=== PATIENT | male | born 1950 | race Caucasian/White ===

== ENCOUNTER → 2016-04-07 | Outpatient (CLI) | payer BC, MEDICARE ==
[2016-04-07 13:12] LABS: Potassium 4.6 mmol/L (3.5-5.1)
[2016-04-07 13:15] LABS: CH 33.7; CHCM 34.2; HCT 46.6 % (39.0-53.0); HDW 2.34; HGB 15.4 gm/dL (13.0-17.5); MCH 32.5 pg (25.0-35.0); MCHC 32.9 g/dL (31.0-37.0); MCV 98.8 fL (80.0-100.0); Mean Platelet Volume 6.8; RBC 4.72 m/uL (4.30-5.90); RDW 12.5 % (11.5-15.5); WBC 4.6 k/uL (3.8-10.6)
== END | disposition home or self-care (01) ==
LOC: LABPAT 12:28
PROVIDERS: ATTEND Surgery
DX: Z01.812 Encounter for preprocedural laboratory examination (principal)
CPT/HCPCS: 36415; 80051; 85027

== ENCOUNTER 2016-04-08 06:06 | Day surgery (SDC) | payer BC, MEDICARE ==
[2016-04-05 13:52] VITALS: BMI 23.7
[~2016-04-08 06:06] MED LIST: LACTATED RINGERS 1,000 ML IV SCH
--- NOTE | 2016-04-08 06:26 | P.GSHP ---
History of Present Illness H&P Date: 04/08/16 S/P colostomy, angel procedure for colon obstruction secondary to diverticulitis stricture. Doing well. Taking regular diet. Increase liquid stool output. No nausea or vomiting. - Review of Systems Comment: Constitutional: No fever, chills or rigors. No weight loss or loss of appetite. HEENT: No difficulty with hearing, vision and swallowing. Lymphatic: No axillary, inguinal and cervical swellings. Endocrine: No thyroid disorders. Denies history of diabetes. Respiratory: No chest pain, shortness of breath, and cough. No hemoptysis. Cardiovascular: No palpitations, irregular HR Gastrointestinal: Denies heartburn. No change in bowel habits. No nausea or vomiting. Genitourinary: No increase in urinary frequency or urgency. No hematuria. Musculoskeletal: No back pain, joint stiffness or pain. Neurologic: No history of seizure disorder and headaches. Psychiatric: Denies depression or anxiety . No suicidal ideation. Hematologic: Denies any abnormal mucosal bleeding or easy bruising. Past Medical History Past Medical History: No Reported History Additional Past Medical History / Comment(s): CURRENT COLOSTOMY, HX OF DIVERTICULITIS, History of Any Multi-Drug Resistant Organisms: None Reported Past Surgical History: Tonsillectomy Additional Past Surgical History / Comment(s): SIGMOID COLECTOMY, Past Anesthesia/Blood Transfusion Reactions: No Reported Reaction Past Psychological History: No Psychological Hx Reported Smoking Status: Never smoker Past Alcohol Use History: Rare Past Drug Use History: None Reported - Past Family History Mother Family Medical History: Cancer Additional Family Medical History / Comment(s): BREAST Medications and Allergies Allergies Allergy/AdvReac Type Severity Reaction Status Date / Time No Known Allergies Allergy Verified 04/05/16 13:37 Surgical - Exam General: Alert and oriented to time, place and person. Not in acute distress . HEENT: No pallor, no icterus Abdomen: Surgical incisions clean, dry and intact. No surgical site infection . No incisional hernias . Ostomy pink and productive Assessment and Plan (1) Sigmoid stricture Status: Acute (2) Diverticulitis large intestine Status: Acute Plan: 1. Increase protein diet 2. Rx for Mycostatin powder and Lomotil 3. Colostomy reversal in at [facility] . Enhanced recovery pathway. 4. Colonoscopy 1 day prior to surgery 5. The risks , benefits and potential complications discussed with the patient including bleeding, infection, anastomotic leak, DVT and PE
[2016-04-08 06:53] VITALS: TEMP 96.6
[2016-04-08] MEDS ORDERED: PROPOFOL 10 MG/ML 20 ML VIAL IV ONE (07:08)
[2016-04-08 07:43] VITALS: RESP 16
[2016-04-08 08:20] VITALS: BP 148/79; PULSE 61
--- NOTE | 2016-04-09 06:50 | P.OP ---
Date of Procedure: 04/08/16 Preoperative Diagnosis: Large bowel obstruction secondary to stricture from sigmoid diverticulitis Status post Miguel procedure Postoperative Diagnosis: Same Procedure(s) Performed: Reversal of colostomy (take down of colostomy ) Low anterior resection and colorectal anastomosis Intraoperative flexible sigmoidoscopy Anesthesia: GETA, local, epidural Surgeon: Jocelyne Eng Estimated Blood Loss (ml): 50 Pathology: none sent Condition: other (ASA2) Disposition: PACU Indications for Procedure: 65 years old male underwent emergency sigmoid colectomy and Miguel procedure for large bowel obstruction(sigmoid stricture) from sigmoid diverticulitis. Informed consent was obtained from the patient after explaining the risks, benefits and potential complications and he elected to undergo colonoscopy via the colostomy and distal rectal stump Operative Findings: Normal colonoscopy with scattered diverticuli Description of Procedure: The patient was brought to the endoscopy suite and placed in lateral decubitus position. IV sedation was given as per anesthesia team. Patient was on continuous vitals and pulse oximetry monitoring throughout the procedure. A timeout was performed to verify correct patient and correct procedure. Perianal examination did not show any external hemorrhoids. Digital rectal examination was performed. No masses or gross blood. A well-lubricated Olympus colonoscope was passed per rectally upto 18 cms. No mass . No polyps. Atrophy aof mucosa sen with mucus drainage. Patient was then turned supine and the colostomy was intubated. The well- lubricated colonoscope was and was gradually advanced beyond the descending colon, splenic flexure, transverse colon, hepatic flexure and cecum. The ileocecal valve was visualized. The colonoscope was gradually withdrawn inspecting all the mucosal surfaces. Bowel prep was good. No polyps, masses, AV malformations noted. Sigmoid diverticulosis noted without any evidence of acute diverticulitis. Recommend repeat colonoscopy in 10 years .
== END 2016-04-08 08:41 | disposition home or self-care (01) ==
LOC: ORWHC2ENDO 06:06
PROVIDERS: ATTEND Surgery
DX: K57.30 Diverticulosis of large intestine without perforation or abscess without bleeding (principal); Z93.3 Colostomy status
CPT/HCPCS: 44388; J2704; 99153

== ENCOUNTER 2016-04-09 07:30 | Inpatient (IN) | payer BC, MEDICARE ==
[2016-04-05 14:04] VITALS: BMI 23.7
[~2016-04-09 07:30] MED LIST changes: +ACETAMINOPHEN TAB 500 MG TAB PO ONE; +ALVIMOPAN 12 MG CAPSULE PO ONE; +Antibiotics per Pharmacy 1 EACH MISC MISCELLANE PRN; +FAMOTIDINE 20 MG/2 ML VIAL IV PRN; +HEPARIN SODIUM,PORCINE 5,000 UNIT/ML 1 ML VIAL SQ ONE; +HYDROmorphone 1 MG/ML 1 ML SYRINGE IVP PRN; -LACTATED RINGERS 1,000 ML IV SCH; +LIDOCAINE 1% 20 ML VIAL (10MG/ML) FOR IV START INTRADERMA PRN; +MELOXICAM 7.5 MG TAB PO ONE; +MIDAZOLAM 2 MG/2 ML VIAL IV PRN; +ceFAZolin 2 GM in SODIUM CHLORIDE 0.9% 100 ML IVPB ONE; +metroNIDAZOLE-NS PMX 500 MG in SALINE 1 100ML.BAG IVPB ONE
[2016-04-09] MEDS: LACTATED RINGERS 1,000 ML IV SCH (12:43)
[2016-04-09] MEDS ORDERED: MIDAZOLAM 2 MG/2 ML VIAL IV ONE (12:47)
[2016-04-09] MEDS ORDERED: BUPIVACAINE (PF) 0.5% 31.3 ML, HYDROmorphone 5 MG in SODIUM CHLORIDE 0.9% 216 ML EPIDURAL PRN (13:24)
[2016-04-09] MEDS ORDERED: NALOXONE 0.4 MG/ML 1 ML VIAL IV PRN ×3 (13:24→19:04)
[2016-04-09] MEDS ORDERED: ONDANSETRON 4 MG/2 ML VIAL IVP PRN (13:42)
[2016-04-09] MEDS ORDERED: METOCLOPRAMIDE 5 MG/ML 2 ML VIAL IVP PRN (13:42)
[2016-04-09] MEDS ORDERED: BENZOCAINE/MENTHOL LOZENG 1 EACH LOZENGE MUCOUS MEM PRN (13:42)
[2016-04-09] MEDS ORDERED: SUCCINYLCHOLINE CHLORIDE 100 MG/5 ML SYR IV ONE (13:46)
[2016-04-09] MEDS ORDERED: HYDROmorphone (PF) 1 MG/ML ONE (13:46)
[2016-04-09] MEDS ORDERED: MIDAZOLAM 2 MG/2 ML VIAL ONE (13:46)
[2016-04-09] MEDS ORDERED: GLYCOPYRROLATE 0.2 MG/ML 2 ML VIAL ONE (13:46)
[2016-04-09] MEDS ORDERED: ROCURONIUM BROMIDE 10 MG/ML 10 ML VIAL IV ONE (13:46)
[2016-04-09] MEDS ORDERED: NEOSTIGMINE 1 MG/ML 10 ML VIAL ONE (13:46)
[2016-04-09] MEDS ORDERED: PROPOFOL 10 MG/ML 20 ML VIAL IV ONE (13:46)
[2016-04-09] MEDS ORDERED: LIDOCAINE 1% INJ 10MG/ML (20 ML MDV) ONE (13:46)
[2016-04-09] MEDS ORDERED: fentaNYL (PF) 50 MCG/ML 2 ML AMP ONE (13:46)
[2016-04-09] MEDS ORDERED: LACTATED RINGERS 1,000 ML IV ONE ×5 (14:26→17:24)
[2016-04-09] MEDS ORDERED: HYDROmorphone PCA 5 MG/25 ML SYRINGE IV PRN (19:04)
[2016-04-09] MEDS: D5-0.45% NACL WITH KCL 20MEQ/L 1,000 ML IV SCH (19:47)
[2016-04-09] MEDS: FAMOTIDINE 20 MG/2 ML VIAL IV SCH (20:35)
--- NOTE | 2016-04-09 20:48 | P.PN ---
Subjective Principal diagnosis: Colostomy reversal The patient is postop day 0 status post colostomy reversal. He reports overall fatigue. He denies appetite. No passage of flatus. Objective - Vital Signs Vital signs: Vital Signs Temp 97.0 F L 04/09/16 19:30 Pulse 61 04/09/16 20:30 Resp 16 04/09/16 19:30 BP 138/76 04/09/16 20:30 Pulse Ox 97 04/09/16 20:30 Intake & Output 04/09/16 04/09/16 04/10/16 06:59 18:59 06:59 Intake Total 4400 Output Total 550 Balance 3850 Weight 77.111 kg Intake: IV 4400 Output: Urine 500 Estimated Blood Loss 50 - Exam GENERAL: Well developed and in no acute distress. HEENT: No sclera icterus. Extraocular movements grossly intact. Moist buccal mucosa. Head is atraumatic, normocephalic. Hears conversational speech. No nasal drainage. NECK: Supple without lymphadenopathy. No JV distention. CHEST: Non-labored respirations and equal bilateral excursions. CARDIOVASCULAR: Regular rate and rhythm. Palpable 2+ radial pulses. ABDOMEN: Soft. Nondistended. Incisional tenderness as expected. Incisions clean dry and intact. No signs of infection. MUSCULOSKELETAL: No clubbing, cyanosis or edema. NEUROLOGIC: No focal or lateralizing signs. PSYCH: Appropriate affect. Alert and oriented to person, place and time. Assessment and Plan (1) History of colostomy reversal Status: Acute (2) Diverticulitis large intestine Status: Chronic Plan: 1. Ice chips. 2. DVT prophylaxis. 3. Ambulate 4 times a day. 4. Incentive spirometer. 5. Enhance colon Protocol. I am rounding on behalf of Dr. Eng.
[2016-04-09] MEDS: HEPARIN SODIUM,PORCINE 5,000 UNIT/ML 1 ML VIAL SQ SCH (23:24)
[2016-04-10] MEDS: D5-0.45% NACL WITH KCL 20MEQ/L 1,000 ML IV SCH ×3 (01:48→17:29)
[2016-04-10] MEDS: LACTATED RINGERS 1,000 ML IV SCH (01:49)
[2016-04-10 07:21] LABS: Basophils % (A) 0 %; CHCM 34.9; Eosinophils % (A) 0 %; HCT 40.6 % (39.0-53.0); HDW 2.35; HGB 13.7 gm/dL (13.0-17.5); Luc # (Auto) 0.13; Luc % (Auto) 1; Lymphocytes # (A) 0.9 k/uL (1.0-4.8); Lymphocytes % (A) 10 %; MCH 32.9 pg (25.0-35.0); MCHC 33.6 g/dL (31.0-37.0); MCV 97.7 fL (80.0-100.0); Mean Platelet Volume 6.7; Monocytes # (A) 0.4 k/uL (0-1.0); Monocytes % (A) 4 %; Neutrophils # (A) 7.9 k/uL (1.3-7.7); Neutrophils % (A) 84 %; RBC 4.16 m/uL (4.30-5.90); RDW 12.4 % (11.5-15.5); WBC 9.4 k/uL (3.8-10.6)
[2016-04-10] MEDS: HEPARIN SODIUM,PORCINE 5,000 UNIT/ML 1 ML VIAL SQ SCH (08:24)
[2016-04-10] MEDS: ALVIMOPAN 12 MG CAPSULE PO SCH ×2 (08:24→22:05)
[2016-04-10] MEDS: FAMOTIDINE 20 MG/2 ML VIAL IV SCH ×2 (08:24→21:00)
[2016-04-10] MEDS ORDERED: ACETAMINOPHEN IV (For NPO) 1,000 MG in EMPTY BAG 1 BAG IVPB SCH (12:00)
[2016-04-10] MEDS ORDERED: LORazepam 2 MG/ML SYRINGE IV PRN (12:08)
--- NOTE | 2016-04-10 12:10 | P.PN ---
Subjective Principal diagnosis: Colostomy reversal The patient is postop day 1 status post colostomy reversal. 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 He has difficulty ambulating secondary to pain. No flatus. He is belching. He denies an appetite. Objective - Vital Signs Vital signs: Vital Signs Temp 98.4 F 04/10/16 07:00 Pulse 65 04/10/16 07:00 Resp 18 04/10/16 07:00 BP 124/71 04/10/16 07:00 Pulse Ox 96 04/10/16 11:11 Intake & Output 04/09/16 04/10/16 04/10/16 18:59 06:59 18:59 Intake Total 4400 1250 Output Total 550 1000 250 Balance 3850 250 -250 Weight 77.111 kg Intake: IV 4400 1250 D5-0.45% NaCl with KCl 1250 20Meq/l 1,000 ml @ 125 mls/hr IV .Q8H VITALY Rx#: [id number] Output: Urine 500 1000 250 Uretheral (Sims) 1000 250 Estimated Blood Loss 50 Other: Voiding Method Indwelling Catheter - Exam GENERAL: Well developed and in no acute distress. HEENT: No sclera icterus. Extraocular movements grossly intact. Moist buccal mucosa. Head is atraumatic, normocephalic. Hears conversational speech. No nasal drainage. NECK: Supple without lymphadenopathy. No JV distention. CHEST: Non-labored respirations and equal bilateral excursions. CARDIOVASCULAR: Regular rate and rhythm. Palpable 2+ radial pulses. ABDOMEN: Soft. Nondistended. Incisional tenderness as expected. Incisions clean dry and intact. No signs of infection. MUSCULOSKELETAL: No clubbing, cyanosis or edema. NEUROLOGIC: No focal or lateralizing signs. PSYCH: Appropriate affect. Alert and oriented to person, place and time. - Labs CBC & Chem 7: 04/10/16 06:56 Labs: Abnormal Lab Results - Last 24 Hours (Table) 04/10/16 Range/Units 06:56 RBC 4.16 L (4.30-5.90) m/uL Plt Count 108 L (150-450) k/uL Neutrophils # 7.9 H (1.3-7.7) k/uL Lymphocytes # 0.9 L (1.0-4.8) k/uL Assessment and Plan (1) History of colostomy reversal Status: Acute (2) Diverticulitis large intestine Status: Chronic (3) Postoperative abdominal pain Status: Acute (4) Thrombocytopenia Status: Acute Plan: 1. IV Tylenol scheduled for pain. 2. IV toradol for pain. 3. 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 4. Continue Entereg. 5. He has thrombocytopenia possible Heparin/Lovenox induced. Hold heparin doses. 6. SCDs and ambulation encouraged. 7. Patient wants to hold any diet at this time.
[2016-04-10] MEDS: KETOROLAC 30 MG/ML 1 ML VIAL IVP SCH ×2 (12:16→17:28)
[2016-04-10] MEDS: ACETAMINOPHEN IV (For NPO) 1,000 MG in EMPTY BAG 1 BAG IVPB SCH ×2 (12:18→17:28)
[2016-04-11] MEDS: ACETAMINOPHEN IV (For NPO) 1,000 MG in EMPTY BAG 1 BAG IVPB SCH ×2 (00:05→05:44)
[2016-04-11] MEDS: KETOROLAC 30 MG/ML 1 ML VIAL IVP SCH ×4 (00:05→17:43)
[2016-04-11] MEDS: D5-0.45% NACL WITH KCL 20MEQ/L 1,000 ML IV SCH ×3 (00:15→15:17)
[2016-04-11 07:41] LABS: Basophils % (A) 1 %; CHCM 34.7; Eosinophils # (A) 0.1 k/uL (0-0.7); Eosinophils % (A) 2 %; HCT 37.1 % (39.0-53.0); HDW 2.31; HGB 12.5 gm/dL (13.0-17.5); Luc # (Auto) 0.13; Luc % (Auto) 2; Lymphocytes # (A) 0.8 k/uL (1.0-4.8); Lymphocytes % (A) 12 %; MCHC 33.6 g/dL (31.0-37.0); MCV 98.2 fL (80.0-100.0); Mean Platelet Volume 8.4; Monocytes # (A) 0.3 k/uL (0-1.0); Monocytes % (A) 4 %; Neutrophils # (A) 5.1 k/uL (1.3-7.7); Neutrophils % (A) 79 %; RBC 3.78 m/uL (4.30-5.90); RDW 12.5 % (11.5-15.5); WBC 6.4 k/uL (3.8-10.6); WBC (Perox) 6.14
[2016-04-11 07:49] LABS: Anion Gap 8 mmol/L; Blood Urea Nitrogen 6 mg/dL (9-20); Calcium 8.6 mg/dL (8.4-10.2); Carbon Dioxide 26 mmol/L (22-30); Chloride 107 mmol/L (98-107); Glucose 119 mg/dL (74-99); Non-African American GFR(MDRD) >60 (>60 ml/min/1.73 sqM); Potassium 4.3 mmol/L (3.5-5.1); Sodium 141 mmol/L (137-145)
[2016-04-11] MEDS: ALVIMOPAN 12 MG CAPSULE PO SCH ×2 (08:00→21:58)
[2016-04-11] MEDS: FAMOTIDINE 20 MG/2 ML VIAL IV SCH ×2 (08:00→21:59)
[2016-04-11] MEDS ORDERED: HYDROmorphone 1 MG/ML 1 ML SYRINGE IVP PRN (13:18)
--- NOTE | 2016-04-11 13:22 | P.PN ---
Subjective Principal diagnosis: Colostomy reversal The patient is postop day 2 status post colostomy reversal. He reports his pain is much better controlled with adjuncts of IV Tylenol and Toradol. He is ambulating frequently in the hallways. No reports of nausea or vomiting. He has been afebrile. No passage of flatus. Objective - Vital Signs Vital signs: Vital Signs Temp 97.8 F 04/11/16 07:00 Pulse 55 L 04/11/16 07:00 Resp 16 04/11/16 07:00 BP 108/67 04/11/16 07:00 Pulse Ox 95 04/11/16 07:00 Intake & Output 04/10/16 04/11/16 04/11/16 18:59 06:59 18:59 Intake Total 1000 1125 Output Total 500 2200 500 Balance 500 -1075 -500 Intake: IV 1000 1125 D5-0.45% NaCl with KCl 1000 1125 20Meq/l 1,000 ml @ 125 mls/hr IV .Q8H VITALY Rx#: [id number] Output: Urine 500 2200 500 Uretheral (Sims) 250 Other: Voiding Method Toilet Urinal - Exam GENERAL: Well developed and in no acute distress. HEENT: No sclera icterus. Extraocular movements grossly intact. Moist buccal mucosa. Head is atraumatic, normocephalic. Hears conversational speech. No nasal drainage. NECK: Supple without lymphadenopathy. No JV distention. CHEST: Non-labored respirations and equal bilateral excursions. CARDIOVASCULAR: Regular rate and rhythm. Palpable 2+ radial pulses. ABDOMEN: Soft. Nondistended. Abdominal binder present. Dressings intact. MUSCULOSKELETAL: No clubbing, cyanosis or edema. NEUROLOGIC: No focal or lateralizing signs. PSYCH: Appropriate affect. Alert and oriented to person, place and time. - Labs CBC & Chem 7: 04/11/16 06:42 04/11/16 06:42 Labs: Abnormal Lab Results - Last 24 Hours (Table) 04/11/16 04/11/16 Range/Units 06:42 06:42 RBC 3.78 L (4.30-5.90) m/uL Hgb 12.5 L (13.0-17.5) gm/dL Hct 37.1 L (39.0-53.0) % Plt Count 100 L (150-450) k/uL Lymphocytes # 0.8 L (1.0-4.8) k/uL BUN 6 L (9-20) mg/dL Glucose 119 H (74-99) mg/dL Assessment and Plan (1) History of colostomy reversal Status: Acute (2) Diverticulitis large intestine Status: Chronic (3) Postoperative abdominal pain Status: Acute (4) Thrombocytopenia Status: Acute Plan: 1. His pain is well-controlled. We'll start oral pain meds per patient request. 2. Liquid diet today. 3. Repeat CBC for thrombocytopenia including anemia. 4. Disposition home pending passage of flatus. 5. Care plan was described in detail to the patient. His surgical questions were answered. I am rounding on behalf of Dr. Eng.
[2016-04-11] MEDS: HYDROcodone/APAP 5-325MG 1 EACH TAB PO SCH ×2 (14:19→21:58)
[2016-04-12] MEDS: KETOROLAC 30 MG/ML 1 ML VIAL IVP SCH ×4 (01:14→19:06)
[2016-04-12] MEDS: HYDROcodone/APAP 5-325MG 1 EACH TAB PO SCH ×4 (01:14→19:06)
[2016-04-12] MEDS: D5-0.45% NACL WITH KCL 20MEQ/L 1,000 ML IV SCH ×3 (05:41→21:22)
[2016-04-12 07:48] LABS: Basophils % (A) 1 %; CH 33.7; CHCM 33.8; Eosinophils # (A) 0.2 k/uL (0-0.7); Eosinophils % (A) 4 %; HCT 37.8 % (39.0-53.0); HDW 2.33; HGB 12.8 gm/dL (13.0-17.5); Luc # (Auto) 0.15; Luc % (Auto) 3; Lymphocytes # (A) 1.2 k/uL (1.0-4.8); Lymphocytes % (A) 25 %; MCH 33.9 pg (25.0-35.0); MCHC 33.9 g/dL (31.0-37.0); Mean Platelet Volume 7.3; Monocytes # (A) 0.2 k/uL (0-1.0); Monocytes % (A) 4 %; Neutrophils # (A) 3.2 k/uL (1.3-7.7); Neutrophils % (A) 64 %; RBC 3.78 m/uL (4.30-5.90); RDW 12.5 % (11.5-15.5); WBC 4.9 k/uL (3.8-10.6); WBC (Perox) 5.09
[2016-04-12 07:57] LABS: Anion Gap 8 mmol/L; Blood Urea Nitrogen 5 mg/dL (9-20); Calcium 8.9 mg/dL (8.4-10.2); Carbon Dioxide 26 mmol/L (22-30); Chloride 107 mmol/L (98-107); Glucose 106 mg/dL (74-99); Non-African American GFR(MDRD) >60 (>60 ml/min/1.73 sqM); Potassium 4.2 mmol/L (3.5-5.1); Sodium 141 mmol/L (137-145)
[2016-04-12] MEDS: ALVIMOPAN 12 MG CAPSULE PO SCH ×2 (08:37→21:23)
[2016-04-12] MEDS: FAMOTIDINE 20 MG/2 ML VIAL IV SCH ×2 (08:38→21:23)
--- NOTE | 2016-04-12 09:07 | P.PN ---
Subjective A 65-year-old male being seen on rounds this morning is currently sitting up in a chair. Patient states pain medication effective for pain control. Patient states less abdominal pain this morning. Patient states he has been up ambulating in the [place] yesterday passing gas no stool. Patient's tolerating diet no reports of nausea vomiting. Patient is postop day 3 colostomy reversal Objective - Vital Signs Vital signs: Vital Signs Temp 97.5 F L 04/12/16 02:00 Pulse 44 L 04/12/16 02:00 Resp 18 04/12/16 02:00 BP 107/67 04/12/16 02:00 Pulse Ox 96 04/12/16 02:00 Intake & Output 04/11/16 04/12/16 04/12/16 18:59 06:59 18:59 Intake Total 1125 Output Total 500 Balance -500 1125 Intake: IV 1125 D5-0.45% NaCl with KCl 1125 20Meq/l 1,000 ml @ 125 mls/hr IV .Q8H VITALY Rx#: [id number] Output: Urine 500 Other: Voiding Method Toilet Urinal # Voids 5 - Exam GENERAL APPEARANCE: 65-year-old male patient is alert, oriented, in no acute distress. Pleasant cooperative sitting up in a chair VITAL SIGNS: Reviewed HEENT: Head is normocephalic and atraumatic. Pupils are equal and reactive. The nares are patent. Oropharynx is clear without lesions. NECK: Supple without lymphadenopathy. Traches midline. HEART: S1, S2. Regular rate and rhythm. No murmur noted denying chest pain LUNGS: No crackles or wheezes are heard. Adequate air movement able to use the incentive spirometer achieving 3000 sats 95% room air ABDOMEN: Abdominal binder in place dressings to surgical site dry slight tenderness a few hypoactive bowel tones no nausea no vomiting urinating no difficulty no stool EXTREMITIES: Normal skin color and turgor. No cyanosis, rash, ulceration, clubbing or edema. Radial pedal pulses are 2/4 bilaterally. NEUROLOGICAL: No focal deficits. Strength and sensation are grossly intact. - Labs CBC & Chem 7: 04/12/16 07:17 04/12/16 07:15 Labs: Abnormal Lab Results - Last 24 Hours (Table) 04/12/16 04/12/16 Range/Units 07:15 07:17 RBC 3.78 L (4.30-5.90) m/uL Hgb 12.8 L (13.0-17.5) gm/dL Hct 37.8 L (39.0-53.0) % Plt Count 106 L (150-450) k/uL BUN 5 L (9-20) mg/dL Glucose 106 H (74-99) mg/dL Assessment and Plan Plan: Impression 1) History of colostomy reversal Status: Acute (2) Diverticulitis large intestine Status: Chronic (3) Postoperative abdominal pain Status: Acute (4) Thrombocytopenia Plan Increase activity to the level of tolerance Pain control Diet to be advanced DVT and GI prophylaxis Further recommendations pending will follow The above dictated assessment and findings were discussed with Dr. Ankush Carmichael and the plan of care have been dictated as directed. Gabriella Anna nurse practitioner acting as a scribe for Dr. Lechuga
[2016-04-12] MEDS: METOCLOPRAMIDE 5 MG/ML 2 ML VIAL IVP SCH (19:06)
[2016-04-13] MEDS: HYDROcodone/APAP 5-325MG 1 EACH TAB PO SCH ×3 (00:23→12:18)
[2016-04-13] MEDS: KETOROLAC 30 MG/ML 1 ML VIAL IVP SCH ×3 (00:24→12:15)
[2016-04-13] MEDS: METOCLOPRAMIDE 5 MG/ML 2 ML VIAL IVP SCH ×3 (00:24→12:16)
[2016-04-13] MEDS: D5-0.45% NACL WITH KCL 20MEQ/L 1,000 ML IV SCH ×2 (03:00→12:16)
[2016-04-13 07:35] LABS: Basophils % (A) 0 %; CH 33.8; CHCM 34.3; Eosinophils # (A) 0.2 k/uL (0-0.7); Eosinophils % (A) 4 %; HCT 35.4 % (39.0-53.0); HDW 2.35; HGB 12.2 gm/dL (13.0-17.5); Luc # (Auto) 0.11; Luc % (Auto) 3; Lymphocytes # (A) 1.1 k/uL (1.0-4.8); Lymphocytes % (A) 26 %; MCH 34.2 pg (25.0-35.0); MCHC 34.5 g/dL (31.0-37.0); Monocytes # (A) 0.2 k/uL (0-1.0); Monocytes % (A) 4 %; Neutrophils # (A) 2.7 k/uL (1.3-7.7); Neutrophils % (A) 64 %; RBC 3.57 m/uL (4.30-5.90); RDW 12.5 % (11.5-15.5); WBC 4.2 k/uL (3.8-10.6); WBC (Perox) 4.43
[2016-04-13 07:47] LABS: Anion Gap 7 mmol/L; Blood Urea Nitrogen 5 mg/dL (9-20); Calcium 8.7 mg/dL (8.4-10.2); Carbon Dioxide 30 mmol/L (22-30); Chloride 104 mmol/L (98-107); Glucose 100 mg/dL (74-99); Non-African American GFR(MDRD) >60 (>60 ml/min/1.73 sqM); Potassium 4.3 mmol/L (3.5-5.1); Sodium 141 mmol/L (137-145)
[2016-04-13 07:51] VITALS: BP 114/70; PULSE 51; RESP 16; TEMP 96.9
[2016-04-13] MEDS: FAMOTIDINE 20 MG/2 ML VIAL IV SCH (08:23)
--- NOTE | 2016-04-13 09:09 | P.DS ---
Providers Date of admission: 04/09/16 08:48 Expected date of discharge: 04/13/16 Attending physician: Jocelyne Eng Primary care physician: [facility] Course: 65-year-old male presented on the day of admission to undergo elective reversible colostomy in a patient who had diverticulitis of the large intestine. Postop there were no acute events. On the day of discharge the pain medication was effective for pain control. Patient had a bowel movement. Was tolerating a diet. Is hemodynamically stable and appropriate proceed with a discharge to home. On the day of discharge the surgeon did remove the Katheryn drain. Lisbet to the surgical site well approximated no redness. Impression discharge diagnosis 1) History of colostomy reversal Status: Acute (2) Diverticulitis large intestine Status: Chronic (3) Postoperative abdominal pain Status: Acute (4) Thrombocytopenia suspect chronic Status post exploratory laparotomy sigmoid colectomy and ostomy done on January for an acute on chronic large bowel obstruction The above dictated assessment and findings were discussed with dr eng. Impression and the plan of care have been dictated as directed. Gabriella Anna nurse practitioner acting as a scribe for dr eng Plan - Discharge Summary New Discharge Prescriptions: Docusate [Colace] 100 mg PO BID #30 capsule HYDROcodone/APAP 5-325MG [[place] 5-325] 1 tab PO Q4HR PRN #30 tab PRN Reason: Pain Discharge Medication List HYDROcodone/APAP 5-325MG [[place] 5-325] 1 tab PO Q4HR PRN #30 tab 02/01/16 [Rx] Docusate [Colace] 100 mg PO BID #30 capsule 04/09/16 [Rx] HYDROcodone/APAP 5-325MG [[place] 5-325] 1 tab PO Q4HR PRN #30 tab 04/09/16 [Rx] HYDROcodone/APAP 5-325MG [[place] 5-325] 2 each PO Q6HR tab 04/13/16 [Rx] Follow up Appointment(s)/Referral(s): Jocelyne Eng MD [STAFF PHYSICIAN] - 04/20/16 Activity/Diet/Wound Care/Special Instructions: OK to shower . No soaking bath. No heavy lifting more than 10 lbs for 6 weeks post surgery. No driving while taking narcotics for pain. May use ice packs for local pain relief Take Motrin 600 mg po TID after meals if pain is not controlled Use incentive spirometry 10 times an hour while awake Discharge Disposition: HOME SELF-CARE
[2016-04-13] MEDS: ALVIMOPAN 12 MG CAPSULE PO SCH (12:15)
--- NOTE | 2016-04-16 13:08 | P.OP ---
Date of Procedure: 04/09/16 Anesthesia: GETA, epidural Surgeon: Jocelyne Eng Pathology: other Condition: other (ASA2) Disposition: floor Description of Procedure: Large bowel obstruction secondary to stricture from sigmoid diverticulitis Status post Miguel procedure Procedure(s) Performed: Reversal of colostomy (take down of colostomy ) Low anterior resection and colorectal anastomosis Intraoperative flexible sigmoidoscopy Anesthesia: GETA, local, epidural Surgeon: Jocelyne Eng Estimated Blood Loss (ml): 50 Pathology: none sent Condition: other (ASA2) Disposition: PACU Indications for Procedure: 65 years old male underwent emergency sigmoid colectomy and Miguel procedure for large bowel obstruction(sigmoid stricture) from sigmoid diverticulitis. Informed consent was obtained from the patient after explaining the risks, benefits and potential complications and he elected to undergo colostomy reversal. Operative Findings: End to side colorectal anastomosis. No leak on air insufflation test Description of Procedure: The patient was brought to the operating room and placed in supine position. General anesthesia with endotracheal intubation was performed as per anesthesia team. A timeout was performed to verify correct patient and correct procedure. He was confirmed to receive perioperative IV antibiotics and DVT prophylaxis. Patient was then placed in lithotomy using yellowfin stirrups and a Sims catheter was inserted under sterile aseptic precautions. The colostomy site was closed with running sutures of 2-0 silk and prepped with Betadine and sterile drapes applied. Chlorhexidine was used to prep the skin followed by application of sterile drapes. Betadine was used to prep the rectum and the perineum. A vertical midline incision was made through the existing scar and the peritoneal cavity was entered under direct vision. There were adhesions from prior surgery which were taken down using sharp dissection. The small bowel was run from ligament of Treitz to terminal ileum. There were various scar bands which were lysed. A loop of small bowel was densely adhered to the left lateral pelvic wall where previous ana m were placed. This was meticulously dissected. No enterotomy noted. The distal rectal stump was identified with the help of Prolene stitches. It was densely adhered to the left lateral pelvic wall. It was circumferentially dissected. The remaining sigmoid colon was resected at rectosigmoid junction using a contour stapler. The patient was placed in Trendelenburg. A Bookwalter retractor was placed in the small bowel was retracted away from the pelvis. Bladder place was also placed. The ostomy was dissected off the surrounding tissue and was interiorized. The descending colon was mobilized further along the white line of Toldt. The descending colon reached the pelvis without any undue tension. The staple margin was opened and several sizers were introduced. 29 sizer could be easily passed and ILS 29 circular stapler anvil was opened and was introduced through the open end of the colon and brought out through the side. An Covidien purple 60 load was used to colse the sigmoid colon end. ILS 29 circular stapler was inserted per rectum and was gradually advanced upto the staple line. The stapler was gently opened. The descending colon reached the pelvis without any tension. The ana m were locked in position and was closed and fired. This was followed by insufflation of air via intraop flexible sigmoidoscopy. The proximal end of the colon was clamped proximally and anastomosis was immersed in saline.There was no air bubbles noted. The air leak test was negative. The prior ostomy site in left lower quadrant was closed with running sutures of single strand Maxon and second layer of 0 Vicryl. The midline was closed with double-stranded PDS 2. Katheryn drain was left in the subcutaneous tissue along both incisions. Skin ana m were applied. The sponge, instrument and needle count were correct 2. Patient tolerated the procedure well and was taken to postanesthesia care unit in stable condition Additional CC's: Fish Anderson
== END 2016-04-13 14:41 | disposition home or self-care (01) | DRG 330 ==
LOC: 2ORWHC 08:48 → 3SUR 17:35
PROVIDERS: ADMIT Surgery; ATTEND Surgery
PROC: 0WQFXZ2 Repair Abdominal Wall, Stoma, External Approach (ICD-10-PCS; principal; 2016-04-09 10:35)
PROC: 0DJD8ZZ Inspection of Lower Intestinal Tract, Via Natural or Artificial Opening Endoscopic (ICD-10-PCS; principal; 2016-04-09 10:35)
PROC: 0DBN0ZZ Excision of Sigmoid Colon, Open Approach (ICD-10-PCS; principal; 2016-04-09 10:35)
DX: Z43.3 Encounter for attention to colostomy (principal); K57.32 Diverticulitis of large intestine without perforation or abscess without bleeding; D69.6 Thrombocytopenia, unspecified; G89.18 Other acute postprocedural pain
CPT/HCPCS: 44388; 80048; 85025; 86850; 86900; 86901; 88304; 92950; 94760; 94762; 99153

== ENCOUNTER → 2016-12-06 | Outpatient (CLI) | payer BC, MEDICARE ==
--- NOTE | 2016-12-06 10:01 | XR ---
EXAMINATION TYPE: XR lumbosacral spine min 4V DATE OF EXAM: 12/06/2016 COMPARISON: NONE HISTORY: 66-year-old male low back pain and right leg pain TECHNIQUE: 5 views FINDINGS: 5 lumbar type vertebral bodies. No pars interarticularis defect. Endplate spondylosis mid to lower ignacio mbar spine with some bridging endplate spondylosis anteriorly and towards the left at L4-L5 and possi elliot at L5-S1 as well. There is moderate to severe degenerative disc height loss at L5-S1 and mild at L4-L5. Marked hypertrophic facet arthropathy mid to lower lumbar spine. Preserved alignment and verte bral body heights. IMPRESSION: Moderate degenerative disc disease and endplate spondylosis particularly in the lower lumbar spine. T here seem to be some bridging endplate spondylotic changes at L4-L5 and L5-S1. Hypertrophic facet art hropathy mid to lower lumbar spine. No vertebral compression collapse or malalignment.
== END ==
LOC: RADXRYALE 09:07
PROVIDERS: ATTEND Physician Assistant Medical
DX: M51.36 Other intervertebral disc degeneration, lumbar region (principal); M47.816 Spondylosis without myelopathy or radiculopathy, lumbar region; M46.86 Other specified inflammatory spondylopathies, lumbar region
CPT/HCPCS: 72110

== ENCOUNTER 2020-03-09 14:39 | Emergency (ER) | payer BC, MEDICARE ==
[2020-03-09 15:46] LABS: Appearance,Urine Clear (Clear); Bilirubin,Urine Negative (Negative); Blood,Urine Negative (Negative); Color,Urine Light Yellow; Glucose,Urine (UA) Negative (Negative); Ketones,Urine Negative (Negative); Leukocyte Esterase,Urine Negative (Negative); Nitrite,Urine Negative (Negative); Protein,Urine Negative (Negative); Specific Gravity,Urine 1.011 (1.001-1.035); Urobilinogen,Urine <2.0 mg/dL (<2.0)
[2020-03-09 15:47] LABS: Basophils % (A) 1 %; Eosinophils # (A) 0.1 k/uL (0-0.7); Eosinophils % (A) 1 %; HCT 43.4 % (39.0-53.0); HGB 15.4 gm/dL (13.0-17.5); Lymphocytes # (A) 1.2 k/uL (1.0-4.8); Lymphocytes % (A) 15 %; MCH 34.3 pg (25.0-35.0); MCHC 35.4 g/dL (31.0-37.0); MCV 96.9 fL (80.0-100.0); Mean Platelet Volume 7.1; Monocytes # (A) 0.3 k/uL (0-1.0); Monocytes % (A) 4 %; Neutrophils # (A) 6.1 k/uL (1.3-7.7); Neutrophils % (A) 78 %; Platelet Count 166 k/uL (150-450); RBC 4.48 m/uL (4.30-5.90); RDW 11.8 % (11.5-15.5); WBC 7.8 k/uL (3.8-10.6)
[2020-03-09 15:56] LABS: INR 0.9 (<1.2); Prothrombin Time 10.2 sec (9.0-12.0)
--- NOTE | 2020-03-09 15:56 | XR ---
EXAMINATION TYPE: XR chest 2V DATE OF EXAM: 03/09/2020 COMPARISON: NONE HISTORY: Altered mental status. TECHNIQUE: Frontal and lateral views of the chest are obtained. FINDINGS: There is no focal air space opacity, pleural effusion, or pneumothorax seen. The cardiac silhouette size is within normal limits. The osseous structures are intact. IMPRESSION: No acute cardiopulmonary process.
[2020-03-09 15:57] LABS: Amphetamine Screen,Urine Not Detected (NotDetected); Barbiturate Screen,Urine Not Detected (NotDetected); Benzodiazepines Screen,Urine Not Detected (NotDetected); Cocaine Screen,Urine Not Detected (NotDetected); Methadone Screen, Urine Not Detected (NotDetected); Opiate Screen,Urine Not Detected (NotDetected); Oxycodone Screen, Urine Not Detected (NotDetected); Phencyclidine Screen,Urine Not Detected (NotDetected); Tricyclic Antidepressant,Urine Not Detected (NotDetected); Urn Cannabinoid Scrn Not Detected (NotDetected)
[2020-03-09 15:59] LABS: ALT 31 U/L (4-49); AST 35 U/L (17-59); African American GFR (CKD) >90 (>60 ml/min/1.73 sqM); Albumin 4.8 g/dL (3.5-5.0); Alkaline Phosphatase 117 U/L (38-126); Anion Gap 8 mmol/L; Blood Urea Nitrogen 23 mg/dL (9-20); Calcium 9.8 mg/dL (8.4-10.2); Carbon Dioxide 22 mmol/L (22-30); Chloride 108 mmol/L (98-107); Glucose 119 mg/dL (74-99); Non-African American GFR(CKD) 87 (>60 ml/min/1.73 sqM); Potassium 4.5 mmol/L (3.5-5.1); Sodium 138 mmol/L (137-145); Total Bilirubin 0.7 mg/dL (0.2-1.3); Total Protein 7.8 g/dL (6.3-8.2)
--- NOTE | 2020-03-09 16:00 | XR ---
Result: Clinical History: Pain status post fall 2 weeks ago. Comparison: None available. Technique: 3 views of the right shoulder. Findings: The bone mineralization is appropriate for age. No acute fracture or dislocation is seen. 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 Subtle trace calcific densities adjacent to the humeral head, consistent with minimal rotator cuff calcific tendinitis. The visualized lung is clear. Impression: No acute osseous abnormality.
--- NOTE | 2020-03-09 16:02 | ED ---
Neuro HPI - General Chief Complaint: Neuro Symptoms/Deficit Stated Complaint: Loss of Memory,Fall 2 wks ago Time Seen by Provider: 03/09/20 15:03 Source: patient Mode of arrival: wheelchair Limitations: no limitations - History of Present Illness Is the patient presenting with stroke symptoms?: No Last Known Well Date: 01/22/20 Onset/Timin -: week(s) Initial Comments: This patient is a 69-year-old man who presents with a constellation of symptoms that he states began on January 21 when he had a fall attempting to bring a arch oil tank into his basement. The patient relates that he fell a number of steps landing with a significant impact on a concrete floor. The patient states he did not strike his head nor was there loss of consciousness. He was having pain in the right shoulder. He also was concerned that he may have had a concussion because following that he began to notice she was having trouble finding words when he was speaking. He states that this has seemed to get progressively worse over the past month and specifically past 2 weeks Location: other Place: home Improves With: none Worsens With: none Context: gradual onset Treatments Prior to Arrival: none - Related Data Home Medications: Previous Rx's Medication Instructions Recorded HYDROcodone/APAP 5-325MG [[place] 1 tab PO Q4HR PRN #30 tab 02/01/16 5-325] Docusate [Colace] 100 mg PO BID #30 capsule 04/09/16 HYDROcodone/APAP 5-325MG [[place] 1 tab PO Q4HR PRN #30 tab 04/09/16 5-325] HYDROcodone/APAP 5-325MG [[place] 2 each PO Q6HR tab 04/13/16 5-325] Allergies/Adverse Reactions: Allergies Allergy/AdvReac Type Severity Reaction Status Date / Time No Known Allergies Allergy Verified 03/09/20 14:55 Review of Systems ROS Statement: Those systems with pertinent positive or pertinent negative responses have been documented in the HPI. ROS Other: All systems not noted in ROS Statement are negative. General Exam Limitations: no limitations Stroke MDM - Lab Data Result diagrams: 03/09/20 15:33 03/09/20 15:33 Lab Results 03/09/20 03/09/20 03/09/20 Range/Units 15:33 15:33 15:33 WBC 7.8 (3.8-10.6) k/uL RBC 4.48 (4.30-5.90) m/uL Hgb 15.4 (13.0-17.5) gm/dL Hct 43.4 (39.0-53.0) % MCV 96.9 (80.0-100.0) fL MCH 34.3 (25.0-35.0) pg MCHC 35.4 (31.0-37.0) g/dL RDW 11.8 (11.5-15.5) % Plt Count 166 (150-450) k/uL MPV 7.1 Neutrophils % 78 % Lymphocytes % 15 % Monocytes % 4 % Eosinophils % 1 % Basophils % 1 % Neutrophils # 6.1 (1.3-7.7) k/uL Lymphocytes # 1.2 (1.0-4.8) k/uL Monocytes # 0.3 (0-1.0) k/uL Eosinophils # 0.1 (0-0.7) k/uL Basophils # 0.0 (0-0.2) k/uL PT 10.2 (9.0-12.0) sec INR 0.9 (<1.2) APTT 21.5 L (22.0-30.0) sec Sodium (137-145) mmol/L Potassium (3.5-5.1) mmol/L Chloride (98-107) mmol/L Carbon Dioxide (22-30) mmol/L Anion Gap mmol/L BUN (9-20) mg/dL Creatinine (0.66-1.25) mg/dL Est GFR (CKD-EPI)AfAm (>60 ml/min/1.73 sqM) Est GFR (CKD-EPI)NonAf (>60 ml/min/1.73 sqM) Glucose (74-99) mg/dL Calcium (8.4-10.2) mg/dL Total Bilirubin (0.2-1.3) mg/dL AST (17-59) U/L ALT (4-49) U/L Alkaline Phosphatase (38-126) U/L Troponin I (0.000-0.034) ng/mL Total Protein (6.3-8.2) g/dL Albumin (3.5-5.0) g/dL Urine Color Light Yellow Urine Appearance Clear (Clear) Urine pH 5.0 (5.0-8.0) Ur Specific [place] 1.011 (1.001-1.035) Urine Protein Negative (Negative) Urine Glucose (UA) Negative (Negative) Urine Ketones Negative (Negative) Urine Blood Negative (Negative) Urine Nitrite Negative (Negative) Urine Bilirubin Negative (Negative) Urine Urobilinogen <2.0 (<2.0) mg/dL Ur Leukocyte Esterase Negative (Negative) Urine Opiates Screen Not Detected (NotDetected) Ur Oxycodone Screen Not Detected (NotDetected) Urine Methadone Screen Not Detected (NotDetected) Ur Propoxyphene Screen Not Detected (NotDetected) Ur Barbiturates Screen Not Detected (NotDetected) U Tricyclic Antidepress Not Detected (NotDetected) Ur Phencyclidine Scrn Not Detected (NotDetected) Ur Amphetamines Screen Not Detected (NotDetected) U Methamphetamines Scrn Not Detected (NotDetected) U Benzodiazepines Scrn Not Detected (NotDetected) Urine Cocaine Screen Not Detected (NotDetected) U Marijuana (THC) Screen Not Detected (NotDetected) 03/09/20 03/09/20 Range/Units 15:33 15:33 WBC (3.8-10.6) k/uL RBC (4.30-5.90) m/uL Hgb (13.0-17.5) gm/dL Hct (39.0-53.0) % MCV (80.0-100.0) fL MCH (25.0-35.0) pg MCHC (31.0-37.0) g/dL RDW (11.5-15.5) % Plt Count (150-450) k/uL MPV Neutrophils % % Lymphocytes % % Monocytes % % Eosinophils % % Basophils % % Neutrophils # (1.3-7.7) k/uL Lymphocytes # (1.0-4.8) k/uL Monocytes # (0-1.0) k/uL Eosinophils # (0-0.7) k/uL Basophils # (0-0.2) k/uL PT (9.0-12.0) sec INR (<1.2) APTT (22.0-30.0) sec Sodium 138 (137-145) mmol/L Potassium 4.5 (3.5-5.1) mmol/L Chloride 108 H (98-107) mmol/L Carbon Dioxide 22 (22-30) mmol/L Anion Gap 8 mmol/L BUN 23 H (9-20) mg/dL Creatinine 0.89 (0.66-1.25) mg/dL Est GFR (CKD-EPI)AfAm >90 (>60 ml/min/1.73 sqM) Est GFR (CKD-EPI)NonAf 87 (>60 ml/min/1.73 sqM) Glucose 119 H (74-99) mg/dL Calcium 9.8 (8.4-10.2) mg/dL Total Bilirubin 0.7 (0.2-1.3) mg/dL AST 35 (17-59) U/L ALT 31 (4-49) U/L Alkaline Phosphatase 117 (38-126) U/L Troponin I <0.012 (0.000-0.034) ng/mL Total Protein 7.8 (6.3-8.2) g/dL Albumin 4.8 (3.5-5.0) g/dL Urine Color Urine Appearance (Clear) Urine pH (5.0-8.0) Ur Specific [place] (1.001-1.035) Urine Protein (Negative) Urine Glucose (UA) (Negative) Urine Ketones (Negative) Urine Blood (Negative) Urine Nitrite (Negative) Urine Bilirubin (Negative) Urine Urobilinogen (<2.0) mg/dL Ur Leukocyte Esterase (Negative) Urine Opiates Screen (NotDetected) Ur Oxycodone Screen (NotDetected) Urine Methadone Screen (NotDetected) Ur Propoxyphene Screen (NotDetected) Ur Barbiturates Screen (NotDetected) U Tricyclic Antidepress (NotDetected) Ur Phencyclidine Scrn (NotDetected) Ur Amphetamines Screen (NotDetected) U Methamphetamines Scrn (NotDetected) U Benzodiazepines Scrn (NotDetected) Urine Cocaine Screen (NotDetected) U Marijuana (THC) Screen (NotDetected) - EKG Data -: EKG Interpreted by [facility] EKG shows normal: sinus rhythm, axis (Normal), intervals (Normal), QRS complexes (Normal), ST-T waves (Normal) Rate: bradycardia (Rate 54 bpm) Interpretation: normal EKG Past Medical History Past Medical History: No Reported History Additional Past Medical History / Comment(s): COLOSTOMY, HX OF DIVERTICULITIS, colostomy reversal History of Any Multi-Drug Resistant Organisms: None Reported Past Surgical History: Tonsillectomy Additional Past Surgical History / Comment(s): SIGMOID COLECTOMY, colostomy reversal Past Anesthesia/Blood Transfusion Reactions: No Reported Reaction Past Psychological History: No Psychological Hx Reported Smoking Status: Never smoker Past Alcohol Use History: Rare Past Drug Use History: None Reported - Past Family History Mother Family Medical History: Cancer Additional Family Medical History / Comment(s): BREAST Course Vital Signs 03/09/20 14:48 Temperature 98.1 F Pulse Rate 65 Respiratory 18 Rate Blood Pressure 144/68 O2 Sat by Pulse 98 Oximetry - Reevaluation(s) Reevaluation #1: 03/09/20 16:34 On reviewing the computed tomography scan, there is a subdural hematoma present. I went and discussed the finding with the patient's and his friend. Discussed options for transfer and he does request to go to [facility] as this is closest facility. Transfer is initiated. I did subsequently also received phone call from the radiologist confirming subdural hematoma. Reevaluation #2: 03/09/20 16:40 I discussed the case with Dr. Coleman at [facility] who will accept the patient for transfer. Patient and friend are updated. Disposition Clinical Impression: Subdural hematoma Disposition: HOME SELF-CARE Condition: Fair Is patient prescribed a controlled substance at d/c from ED?: No Referrals: Fish Anderson DO [Primary Care Provider] - 1-2 days
[2020-03-09 16:09] LABS: Partial Thromboplastin Time 21.5 sec (22.0-30.0)
--- NOTE | 2020-03-09 16:39 | CT ---
EXAMINATION TYPE: CT brain wo con DATE OF EXAM: 03/09/2020 COMPARISON: None available. HISTORY: fall with head pain/injury. CT DLP: 1129.4 mGycm Automated exposure control for dose reduction was used. FINDINGS: There is a large left subdural hemorrhage overlying the left hemisphere measuring 24.3 cm in thicknes s. There is mass effect with 8 mm rightward midline shift. There is effacement of the left lateral ve ntricle. There is sulcal effacement on the left. The calvarium is intact. The paranasal sinuses and m astoid air cells are adequately aerated. IMPRESSION: LARGE LEFT SUBDURAL HEMORRHAGE WITH 8 MM RIGHTWARD MIDLINE SHIFT. Findings were reported to Dr. Brewer by me at the time of dictation.
[2020-03-09 16:44] VITALS: BP 126/86; PULSE 53; RESP 16; TEMP 97.7
== END 2020-03-09 17:30 | disposition home or self-care (01) ==
LOC: EC 14:39
DX: S06.5X9A Traumatic subdural hemorrhage with loss of consciousness of unspecified duration, initial encounter (principal); W10.9XXA Fall (on) (from) unspecified stairs and steps, initial encounter
CPT/HCPCS: 36415; 70450; 71046; 80053; 80306; 81003; 84484; 85025; 85610; 85730; 93005; 99284

== ENCOUNTER → 2020-04-17 | Outpatient (CLI) | payer BC, MEDICARE ==
--- NOTE | 2020-04-17 07:39 | CT ---
EXAMINATION TYPE: CT brain wo con DATE OF EXAM: 04/17/2020 HISTORY: nontraumatic subdural hemorrhage follow up CT DLP: 1036 mGycm. Automated Exposure Control for Dose Reduction was Utilized. TECHNIQUE: CT scan of the head is performed without contrast. COMPARISON: CT brain March 09, 2020. FINDINGS: There is interval left frontal craniotomy. Small asymmetric residual low dense extra-axial fluid collection remains present measuring up to 8 mm in thickness extending superiorly and posterior ly. Interval resolution of midline shift. Mild to moderate ventricular and sulcal prominence redemonstrat ed. Mild low attenuation in the periventricular white matter. Visualized sinuses are clear and globes are intact. IMPRESSION: Interval surgical decompression. Small residual chronic left extra-axial fluid collection . Interval resolution of midline shift. No new acute intracranial hemorrhage.
== END | disposition home or self-care (01) ==
LOC: RADCTMAIN 07:00
PROVIDERS: ATTEND Neurological Surgery
DX: R90.89 Other abnormal findings on diagnostic imaging of central nervous system (principal); I62.00 Nontraumatic subdural hemorrhage, unspecified; Z98.890 Other specified postprocedural states
CPT/HCPCS: 70450

== ENCOUNTER 2020-05-30 08:56 | Emergency (ER) | payer BC, MEDICARE ==
[2020-05-30 09:18] VITALS: BP 124/73; PULSE 50; RESP 18; TEMP 97.6
[2020-05-30] MEDS ORDERED: LACOSAMIDE IV 200 MG in SODIUM CHLORIDE 0.9% 50 ML IVPB STA (09:53)
--- NOTE | 2020-05-30 10:17 | ED ---
General Adult HPI - General Chief complaint: Recheck/Abnormal Lab/Rx Stated complaint: post concussion-needs infusion Time Seen by Provider: 05/30/20 09:30 Source: patient, RN notes reviewed Mode of arrival: ambulatory Limitations: no limitations - History of Present Illness Initial comments: This a 70-year-old male presents emergency Department chief complaint of needing infusion for seizure medication. Patient states he's been switched to new medication is unsure what this medication is. Patient states that he had a fall months ago and has small bleed in which they have placed him on seizure medications. Patient has no other complaints headache no dizziness no blurred vision no focal weakness currently. - Related Data Previous Rx's Medication Instructions Recorded HYDROcodone/APAP 5-325MG [[place] 1 tab PO Q4HR PRN #30 tab 02/01/16 5-325] Docusate [Colace] 100 mg PO BID #30 capsule 04/09/16 HYDROcodone/APAP 5-325MG [[place] 1 tab PO Q4HR PRN #30 tab 04/09/16 5-325] HYDROcodone/APAP 5-325MG [[place] 2 each PO Q6HR tab 04/13/16 5-325] Lacosamide [Vimpat] 100 mg PO BID #60 tablet 05/30/20 Allergies Allergy/AdvReac Type Severity Reaction Status Date / Time No Known Allergies Allergy Verified 05/30/20 09:13 Review of Systems ROS Statement: Those systems with pertinent positive or pertinent negative responses have been documented in the HPI. ROS Other: All systems not noted in ROS Statement are negative. Past Medical History Past Medical History: No Reported History Additional Past Medical History / Comment(s): COLOSTOMY, HX OF DIVERTICULITIS, colostomy reversal.brain hemorrhage History of Any Multi-Drug Resistant Organisms: None Reported Past Surgical History: Tonsillectomy Additional Past Surgical History / Comment(s): SIGMOID COLECTOMY, colostomy reversal, brain surgery Past Anesthesia/Blood Transfusion Reactions: No Reported Reaction Past Psychological History: No Psychological Hx Reported Smoking Status: Never smoker Past Alcohol Use History: None Reported, Rare Past Drug Use History: None Reported - Past Family History Mother Family Medical History: Cancer Additional Family Medical History / Comment(s): BREAST General Exam Limitations: no limitations General appearance: alert, in no apparent distress Head exam: Present: atraumatic, normocephalic, normal inspection Neck exam: Present: normal inspection. Absent: tenderness, meningismus, lymphadenopathy Respiratory exam: Present: normal lung sounds bilaterally. Absent: respiratory distress, wheezes, rales, rhonchi, stridor Cardiovascular Exam: Present: regular rate, normal rhythm, normal heart sounds. Absent: systolic murmur, diastolic murmur, rubs, gallop, clicks Neurological exam: Present: alert, oriented X3, CN II-XII intact, reflexes normal. Absent: motor sensory deficit Skin exam: Present: warm, dry, intact, normal color. Absent: rash Course Vital Signs 05/30/20 09:13 Temperature 97.6 F Pulse Rate 50 L Respiratory 18 Rate Blood Pressure 124/73 O2 Sat by Pulse 98 Oximetry Medical Decision Making - Medical Decision Making I did contact his neurologist Dr. Hahn at [facility] and which he recommended 200 mg of IV discharged 100 mg by mouth patient follow-up in office patient was advised to be observed for 1 hour post infusion. Disposition Clinical Impression: History of seizure, Medication administered Disposition: HOME SELF-CARE Condition: Stable Instructions (If sedation given, give patient instructions): Recurrent Seizures in Adults (ED) Additional Instructions: Please return to the Emergency Department if symptoms worsen or any other concerns. Prescriptions: Lacosamide [Vimpat] 100 mg PO BID #60 tablet Is patient prescribed a controlled substance at d/c from ED?: No Referrals: Fish Anderson DO [Primary Care Provider] - 1-2 days Time of Disposition: 10:16
== END 2020-05-30 12:05 | disposition home or self-care (01) ==
LOC: EC 08:56
DX: Z00.8 Encounter for other general examination (principal); Z87.898 Personal history of other specified conditions
CPT/HCPCS: 99283; 96365; C9254

== ENCOUNTER 2020-06-09 | Emergency (ER) | payer BC, MEDICARE ==
--- NOTE | 2020-06-09 08:00 | ED ---
General Adult HPI - General Chief complaint: Recheck/Abnormal Lab/Rx Stated complaint: poss post op infection Time Seen by Provider: 06/09/20 07:24 Source: patient, RN notes reviewed, old records reviewed Mode of arrival: ambulatory Limitations: no limitations - History of Present Illness Initial comments: 70-year-old male presenting for evaluation of incision status post left craniotomy in February. Patient had a fall resulting in a subdural and craniotomy at [facility]. He is to been doing quite well postoperatively. This occurred in February exact date not known. He did have a follow-up CT in March. He presents today with 1 week of clear drainage from his scalp incision. He notes that this is worse when he puts his head down. He states that it has been light yellow but mostly clear. He denies really drainage. Denies surrounding erythema or pain complaints. He denies headache. He has been doing quite well otherwise with no systemic symptoms. No focal numbness or weakness. - Related Data Home Medications Medication Instructions Recorded Confirmed Losartan [Cozaar] 50 mg PO DAILY 06/09/20 06/09/20 Methylphenidate HCl [Concerta] 36 mg PO DAILY 06/09/20 06/09/20 Previous Rx's Medication Instructions Recorded Lacosamide [Vimpat] 100 mg PO BID #60 tablet 05/30/20 Allergies Allergy/AdvReac Type Severity Reaction Status Date / Time No Known Allergies Allergy Verified 06/09/20 08:24 Review of Systems ROS Statement: Those systems with pertinent positive or pertinent negative responses have been documented in the HPI. ROS Other: All systems not noted in ROS Statement are negative. Past Medical History Past Medical History: No Reported History Additional Past Medical History / Comment(s): COLOSTOMY, HX OF DIVERTICULITIS, colostomy reversal.brain hemorrhage History of Any Multi-Drug Resistant Organisms: None Reported Past Surgical History: Tonsillectomy Additional Past Surgical History / Comment(s): SIGMOID COLECTOMY, colostomy reversal, recent brain surgery Past Anesthesia/Blood Transfusion Reactions: No Reported Reaction Past Psychological History: No Psychological Hx Reported Smoking Status: Never smoker Past Alcohol Use History: None Reported, Rare Past Drug Use History: None Reported - Past Family History Mother Family Medical History: Cancer Additional Family Medical History / Comment(s): BREAST General Exam Limitations: no limitations General appearance: alert, in no apparent distress Head exam: Present: other (Left craniotomy incision appears well-healed with the exception of a punctate track in the central portion of the incision left scalp with clear drainage. No surrounding erythema.) Eye exam: Present: normal appearance, PERRL ENT exam: Present: normal exam Neck exam: Present: normal inspection. Absent: tenderness, meningismus Respiratory exam: Present: normal lung sounds bilaterally. Absent: wheezes Cardiovascular Exam: Present: normal rhythm, bradycardia GI/Abdominal exam: Present: soft. Absent: distended, tenderness, guarding, rebound Extremities exam: Present: normal inspection, normal capillary refill. Absent: pedal edema Neurological exam: Present: alert, oriented X3, CN II-XII intact, normal gait. Absent: motor sensory deficit Psychiatric exam: Present: normal affect, normal mood Skin exam: Present: warm, dry Course Vital Signs 06/09/20 07:20 Temperature 97.4 F L Pulse Rate 51 L Respiratory 18 Rate Blood Pressure 141/72 O2 Sat by Pulse 97 Oximetry Medical Decision Making - Medical Decision Making 70-year-old male status post craniotomy for subdural hematoma in February with clear drainage from incision. This does not look infected. I suspect this may be a CSF leak. I did discuss the case with the neurosurgeon Dr. Travis, who is familiar with this patient. He does recommend a tight wrap around the incision and presumed CSF leak. He will follow-up with the patient on an outpatient basis. Patient is otherwise well-appearing, he's instructed on how to change the dressing area and given return parameters. Disposition Clinical Impression: Postoperative CSF leak Disposition: HOME SELF-CARE Condition: Good Instructions (If sedation given, give patient instructions): Craniotomy for a Brain Bleed (DC), Wound Dehiscence (ED) Additional Instructions: Please change dressing daily. Please follow with your neurosurgeon. Is patient prescribed a controlled substance at d/c from ED?: No Referrals: Fish Anderson DO [Primary Care Provider] - 1-2 days Time of Disposition: 08:40
== END 2020-06-09 09:38 | disposition home or self-care (01) ==
CPT/HCPCS: 99283

== ENCOUNTER → 2020-06-13 | Outpatient (CLI) | payer BC, MEDICARE ==
--- NOTE | 2020-06-13 15:25 | MR ---
EXAMINATION TYPE: MR brain wo/w con DATE OF EXAM: 06/13/2020 1:34 PM COMPARISON: NONE HISTORY: SEIZURE PROTOCOL, convulsions CONTRAST: Patient received 8.5 mL intravenous Gadavist gadolinium contrast. Multiplanar and multispin-echo imaging of the brain was performed . Pre and post contrast enhanced i mages are obtained. The ventricles, basal cisterns and sulci overlying the cerebral convexities are mildly enlarged. There is evidence of mild periventricular white matter ischemic demyelination. Remote deep white matter insults are also noted. No acute edema is seen on diffusion weighted imaging. There is no evidence for midline shift or mass effect. Acute intracranial hemorrhage or extra-axial collection is not evident. Enhancing nodular density measuring 1.2 cm at the site of craniotomy. This may simply reflect postsur gical change. Underlying lesion not excluded. Mild dural enhancement from recent operative procedure. No additional enhancing lesions seen. The paranasal sinuses and mastoid air cells are well-aerated. IMPRESSION: 1. Left frontal craniotomy changes with 1.2 cm nodularity at the site of craniotomy as noted above. D ural enhancement seen. 2. Age-related atrophic and chronic small vessel ischemic change. No acute intracranial process at t his time.
== END | disposition home or self-care (01) ==
LOC: RADMRIMAIN 12:17
PROVIDERS: ATTEND Psychiatry & Neurology Neurology
DX: I67.82 Cerebral ischemia (principal); R56.9 Unspecified convulsions
CPT/HCPCS: 70553; A9585

== ENCOUNTER 2020-07-15 11:21 | Emergency (ER) | payer BC, MEDICARE ==
[2020-07-15 11:52] VITALS: BP 131/68; PULSE 54; RESP 18; TEMP 97.8
--- NOTE | 2020-07-15 12:08 | ED ---
Extremity Problem HPI - General Chief complaint: Extremity Problem,Nontraumatic Stated complaint: Rt Elbow Inflammation Time Seen by Provider: 07/15/20 11:54 Source: patient, RN notes reviewed Mode of arrival: ambulatory Limitations: no limitations - Related Data Home Medications Medication Instructions Recorded Confirmed Losartan [Cozaar] 50 mg PO DAILY 06/09/20 06/09/20 Methylphenidate HCl [Concerta] 36 mg PO DAILY 06/09/20 06/09/20 Previous Rx's Medication Instructions Recorded Lacosamide [Vimpat] 100 mg PO BID #60 tablet 05/30/20 Naproxen [Naprosyn] 500 mg PO Q12HR #30 tab 07/15/20 Allergies Allergy/AdvReac Type Severity Reaction Status Date / Time No Known Allergies Allergy Verified 07/15/20 11:52 Review of Systems ROS Statement: Those systems with pertinent positive or pertinent negative responses have been documented in the HPI. ROS Other: All systems not noted in ROS Statement are negative. Past Medical History Past Medical History: No Reported History Additional Past Medical History / Comment(s): COLOSTOMY, HX OF DIVERTICULITIS, colostomy reversal.brain hemorrhage History of Any Multi-Drug Resistant Organisms: None Reported Past Surgical History: Tonsillectomy Additional Past Surgical History / Comment(s): SIGMOID COLECTOMY, colostomy reversal, recent brain surgery Past Anesthesia/Blood Transfusion Reactions: No Reported Reaction Past Psychological History: No Psychological Hx Reported Smoking Status: Never smoker Past Alcohol Use History: None Reported, Rare Past Drug Use History: None Reported - Past Family History Mother Family Medical History: Cancer Additional Family Medical History / Comment(s): BREAST General Exam Limitations: no limitations Course Vital Signs 07/15/20 11:48 Temperature 97.8 F Pulse Rate 54 L Respiratory 18 Rate Blood Pressure 131/68 O2 Sat by Pulse 96 Oximetry Disposition Clinical Impression: Olecranon bursitis, right elbow Disposition: HOME SELF-CARE Condition: Stable Instructions (If sedation given, give patient instructions): Elbow Bursitis (ED) Additional Instructions: Please return to the Emergency Department if symptoms worsen or any other concerns. Prescriptions: Naproxen [Naprosyn] 500 mg PO Q12HR #30 tab Is patient prescribed a controlled substance at d/c from ED?: No Referrals: Fish Anderson DO [Primary Care Provider] - 1-2 days Dillon Holt MD [STAFF PHYSICIAN] - 1-2 days Time of Disposition: 12:08
== END 2020-07-15 12:34 | disposition home or self-care (01) ==
LOC: EC 11:21
DX: M70.21 Olecranon bursitis, right elbow (principal)
CPT/HCPCS: 99282

== ENCOUNTER → 2021-11-04 | Outpatient (CLI) | payer BC, MEDICARE ==
--- NOTE | 2021-11-04 09:40 | XR ---
EXAMINATION TYPE: XR cervical spine comp DATE OF EXAM: 11/04/2021 9:27 AM INDICATION: Patient age:Male; 71 years old; Reason for study: [id number] Radiculopathy, paresthesia; [facility]. COMPARISON: None TECHNIQUE: The cervical spine was imaged in 4 projections. Frontal, lateral, odontoid and bilateral o blique. FINDINGS: The osseous structures show normal alignment without evidence of an acute fracture. There are osteoph ytes noted throughout the cervical spine on the anterior and lateral aspects of the vertebral bodies. The intervertebral disk spaces are preserved. Pedicles are intact. Soft tissues are within normal limits. The odontoid appears intact. Multilevel facet joint arthropathy with varying degrees of neura l foraminal stenosis worse at C4-C5 and C5-C6 bilaterally.. There is atherosclerosis at the carotid b ifurcations. IMPRESSION: 1. No fracture or dislocation. 2. Moderate degenerative disc disease changes of the cervical spine with varying degrees of neural fo raminal stenosis throughout the spine. Most pronounced at C4-C5 and C5-C6 bilaterally.
== END | disposition home or self-care (01) ==
LOC: RADXRYALE 08:43
PROVIDERS: ATTEND Physician Assistant Medical
DX: M50.122 Cervical disc disorder at C5-C6 level with radiculopathy (principal); M48.02 Spinal stenosis, cervical region; R20.2 Paresthesia of skin
CPT/HCPCS: 72050

== ENCOUNTER → 2023-03-22 | Outpatient (CLI) | payer MEDICARE ==
[2023-03-22 08:00] LABS: African American GFR (CKD) >90 (>60 ml/min/1.73 sqM); Blood Urea Nitrogen 36 mg/dL (9-20); Non-African American GFR(CKD) 85 (>60 ml/min/1.73 sqM)
--- NOTE | 2023-03-22 08:31 | XR ---
EXAMINATION TYPE: XR chest 2V DATE OF EXAM: 03/22/2023 COMPARISON: 03/09/2020 HISTORY: Shortness of breath TECHNIQUE: Frontal and lateral views of the chest are obtained. FINDINGS: Scattered senescent parenchymal changes noted. Hyperinflation compatible with COPD. No evidence for infiltrate. No evidence for atelectasis. Heart size is stable. Mediastinal structures are stable and grossly unremarkable. No evidence for hilar prominence. Degenerative changes dorsal spine. IMPRESSION: 1. No evidence for acute pulmonary disease.
--- NOTE | 2023-03-22 09:22 | CT ---
EXAMINATION TYPE: CT abdomen pelvis w con CT DLP: 665.1 mGycm, Automated exposure control for dose reduction was used. DATE OF EXAM: 03/22/2023 9:09 AM COMPARISON: CT abdomen pelvis most recent from 01/28/2016 CLINICAL INDICATION:Male, 72 years old with history of C61 PROSTATE CANCER; prostate CA TECHNIQUE: Standard CT of the abdomen and pelvis following the administration of 100 cc of Isovue 3 00 IV contrast material and oral contrast. Coronal and sagittal reformats were performed. FINDINGS: LOWER CHEST: Posterior dependent subsegmental atelectasis is noted. Coronary arterial calcifications. ABDOMEN LIVER: Unremarkable GALLBLADDER AND BILE DUCTS: Unremarkable. PANCREAS: Unremarkable. SPLEEN: Unremarkable. ADRENAL GLANDS: Unremarkable. KIDNEYS AND URETERS: No evidence of hydronephrosis or renal calculus. The kidneys enhance symmetrical ly. Contrast is demonstrated within both collecting systems on the delayed phase. PELVIS BLADDER: Unremarkable REPRODUCTIVE: Prominent prostate gland with central coarse calcification. ABDOMEN & PELVIS STOMACH AND BOWEL: Stomach and duodenum are unremarkable. No focal bowel wall thickening. Mild to mo derate colonic stool burden. Anastomosis involving the region of the sigmoid colon. No suspicious sof t tissue in this region. No evidence of bowel obstruction. PERITONEUM: No evidence of pneumoperitoneum or free fluid. VASCULATURE: No evidence of aortic aneurysm. MUSCULOSKELETAL: No acute osseous abnormalities. No aggressive osseous lesion. Multilevel degenerativ e changes of the lower lumbar spine. No sclerotic foci are identified. LYMPH NODES: No gross evidence for lymphadenopathy. SOFT TISSUE/ABDOMINAL WALL: Postsurgical changes of the anterior abdominal wall. IMPRESSION: 1. No CT evidence for metastatic disease within the abdomen or pelvis. 2. Post surgical changes of the sigmoid colon.
--- NOTE | 2023-03-22 14:32 | NM ---
EXAMINATION TYPE: NM bone scan whole body DATE OF EXAM: 03/22/2023 COMPARISON: 03/01/2013 CLINICAL INDICATION: Male, 72 years old with history of C61 PROSTATE CANCER; Delayed whole-body scanning was performed following the injection of 25.5 mCi Tc 99m MDP. Images acq uired 5 hours post injection. FINDINGS: Degenerative uptake about the shoulders, elbows, sternoclavicular joints, wrists, knees as well as an kles and feet. Mild degenerative uptake about the hips. Degenerative uptake mid thoracic spine and lo wer lumbar spine. No intense uptake to suggest metastatic disease at this time. IMPRESSION: No scintigraphic evidence to suggest metastatic disease at this time.
== END | disposition home or self-care (01) ==
LOC: RADNMMAIN 07:20
PROVIDERS: ATTEND Urology
DX: C61 Malignant neoplasm of prostate (principal); R06.02 Shortness of breath; Z98.890 Other specified postprocedural states
CPT/HCPCS: 82565; 84520; 71046; 74177; 36415; 78306; A9503; Q9967

== ENCOUNTER 2023-07-12 11:31 | Day surgery (SDC) | payer MEDICARE ==
--- NOTE | 2023-07-12 11:02 | P.HPIHPCON ---
History of Present Illness H&P Date: 07/12/23 Chief Complaint: Prostate cancer This is a 73-year-old male with history of [place] 8(4+4) prostate cancer, elected to proceed with radiation therapy. Presents today for SpaceOAR gel placement. Risk benefit and rationale of surgery was discussed with him in detail. Aware the risk of bleeding infection, and potential of developing rectal toxicity even with a spacerOR Consent for Procedure: I have explained the operation/procedure to the patient, including the risks, benefits, side effects, alternative therapies (including not receiving the proposed treatment or service), the likelihood of the patient achieving his/her goals, and potential recuperation problems for the procedure/sedation/analgesia, as well as any blood products, if indicated. I also explained to the patient the risks, benefits and side effects of the alternatives, as well as the risks related to not receiving the proposed procedure, care, treatment, or services. Past Medical History Past Medical History: No Reported History, Cancer, Hypertension, Osteoarthritis (OA), Prostate Disorder Additional Past Medical History / Comment(s): COLOSTOMY, HX OF DIVERTICULITIS, colostomy reversal.enlarged prostate. chronic fatigue. concussion/brain bleed, no true seizure but abnormal CT after a fall. 3 yrs ago prostate cancer dx couple months ago. History of Any Multi-Drug Resistant Organisms: None Reported Past Surgical History: Tonsillectomy Additional Past Surgical History / Comment(s): SIGMOID COLECTOMY, colostomy with reversal, recent brain surgery, prostate bx. Past Anesthesia/Blood Transfusion Reactions: No Reported Reaction Smoking Status: Never smoker - Past Family History Mother Family Medical History: Cancer Additional Family Medical History / Comment(s): BREAST Medications and Allergies Home Medications Medication Instructions Recorded Confirmed Type Lacosamide [Vimpat] 50 mg PO BID 07/06/23 07/06/23 History Losartan Potassium 50 mg PO DAILY 07/06/23 07/06/23 History Unk Fish Oil 1 tab PO DAILY 07/06/23 07/06/23 History Unk Multi Vitamin 1 tab PO DAILY 07/06/23 07/06/23 History Unk Vitamin E 1 tab PO DAILY 07/06/23 07/06/23 History modafiniL [Provigil] 200 mg PO DAILY 07/06/23 07/06/23 History Allergies Allergy/AdvReac Type Severity Reaction Status Date / Time No Known Allergies Allergy Verified 07/06/23 12:19 Surgical - Exam - General no distress, no pain - Eyes normal ocular movement, no pale - ENT normal nares, normal mucosa - Respiratory normal expansion, normal respiratory effort - Abdomen Abdomen: soft, non tender Assessment and Plan Assessment: OR for SpaceOAR gel placement
[~2023-07-12 11:31] MED LIST changes: -ACETAMINOPHEN TAB 500 MG TAB PO ONE; -ALVIMOPAN 12 MG CAPSULE PO ONE; -Antibiotics per Pharmacy 1 EACH MISC MISCELLANE PRN; +DEXAMETHASONE SOD PHOSPHATE 4 MG/ML 1 ML VIAL IV ONE; -FAMOTIDINE 20 MG/2 ML VIAL IV PRN; -HEPARIN SODIUM,PORCINE 5,000 UNIT/ML 1 ML VIAL SQ ONE; +HYDROmorphone 0.5 MG/0.5 ML SYRINGE IVP PRN; -HYDROmorphone 1 MG/ML 1 ML SYRINGE IVP PRN; +LIDOCAINE 1% (10MG/ML) FOR IV START INTRADERMA PRN; -LIDOCAINE 1% 20 ML VIAL (10MG/ML) FOR IV START INTRADERMA PRN; -MELOXICAM 7.5 MG TAB PO ONE; +ONDANSETRON 4 MG/2 ML VIAL IVP ONE; -ceFAZolin 2 GM in SODIUM CHLORIDE 0.9% 100 ML IVPB ONE; -metroNIDAZOLE-NS PMX 500 MG in SALINE 1 100ML.BAG IVPB ONE
[2023-07-12] MEDS: LACTATED RINGERS 1,000 ML IV SCH (12:25)
[2023-07-12 12:33] VITALS: RESP 16; TEMP 97.4
[2023-07-12] MEDS ORDERED: GLYCOPYRROLATE 0.2 MG/ML 2 ML VIAL ONE (12:40)
[2023-07-12] MEDS ORDERED: fentaNYL (PF) 50 MCG/ML 2 ML AMP ONE (12:40)
[2023-07-12] MEDS ORDERED: PROPOFOL 10 MG/ML 20 ML VIAL IV ONE (12:40)
[2023-07-12] MEDS ORDERED: MIDAZOLAM 2 MG/2 ML VIAL ONE (12:40)
[2023-07-12] MEDS: LIDOCAINE 2% INJ 20 MG/ML SQ ONE ×2 (12:56)
--- NOTE | 2023-07-12 13:13 | P.OP ---
Date of Procedure: 07/12/23 Preoperative Diagnosis: Prostate cancer Postoperative Diagnosis: Same Procedure(s) Performed: SpaceOAR gel placement Implants: SpaceOAR gel Anesthesia: KIMBERLY Surgeon: Cachorro Barba Estimated Blood Loss (ml): 1 Pathology: none sent Condition: stable Disposition: PACU Indications for Procedure: This is a 73-year-old male with history of [place] 8(4+4) prostate cancer, elected to proceed with radiation therapy. Presents today for SpaceOAR gel placement. Risk benefit and rationale of surgery was discussed with him in detail. Aware the risk of bleeding infection, and potential of developing rectal toxicity even with a spacerOR Description of Procedure: The patient was taken to the operating room and placed in the dorsolithotomy position, with his legs supported in Brown stirrups. The external genitalia was prepped and draped sterilely. The transrectal ultrasound probe was placed intrarectally. The prostate was imaged. The probe was then placed within the stabilizing stand. A spinal needle was advanced under ultrasonic guidance to the level of the urogenital diaphragm, and lidocaine was used to infiltrate the tissues as the needle was withdrawn. Next, the SpaceOAR needle was passed through the midline of the perineum, 1-2 cm anterior to the anal opening. The needle was slowly advanced under ultrasonic guidance until the needle tip was located within the fat plane between the prostate and rectum, at the level of the mid prostate gland. The needle was confirmed to be midline on the axial imaging. A small amount of normal saline was injected for hydrodissection. Next, the SpaceOAR components were mixed and loaded into the Y connector per protocol. The Y connector was then connected to the needle, and the components were injected slowly over a course of approximately 10 seconds. A total of 10 ml was injected. Significant distance was created between the prostate and rectum, as desired. It should be noted that at no point was there any concern of rectal perforation. The needle was withdrawn, as well as the transrectal ultrasound probe, and the procedure was terminated. The patient tolerated the procedure well and was taken to the recovery room in stable condition
[2023-07-12 14:27] VITALS: BP 109/67; PULSE 58
== END 2023-07-12 13:58 | disposition home or self-care (01) ==
LOC: OR 11:31
PROVIDERS: ATTEND Urology
DX: C61 Malignant neoplasm of prostate (principal); I10 Essential (primary) hypertension; M19.90 Unspecified osteoarthritis, unspecified site; Z90.49 Acquired absence of other specified parts of digestive tract; Z86.73 Personal history of transient ischemic attack (TIA), and cerebral infarction without residual deficits; Z79.899 Other long term (current) drug therapy; Z98.890 Other specified postprocedural states
CPT/HCPCS: 55874; C1889; J2001; J2250; J0690; J3010; J2704

== ENCOUNTER → 2023-11-07 | Outpatient (CLI) | payer MEDICARE ==
[2023-11-07 15:49] LABS: Prostate Specific Antigen 0.99 ng/mL (0.000-6.500)
== END | disposition home or self-care (01) ==
LOC: LABWHC1 10:17
PROVIDERS: ATTEND Radiology Radiation Oncology
DX: C61 Malignant neoplasm of prostate (principal)
CPT/HCPCS: 36415; 84153; 84403

== ENCOUNTER → 2024-03-05 | Outpatient (CLI) | payer MEDICARE | END | disposition home or self-care (01) | LOC: LABWHC1 11:50 | PROVIDERS: ATTEND Radiology Radiation Oncology | DX: C61 Malignant neoplasm of prostate (principal) | CPT/HCPCS: 36415; 84153; 84403 ==

== ENCOUNTER → 2024-08-30 | Outpatient (CLI) | payer MEDICARE ==
[2024-08-30 20:05] LABS: Prostate Specific Antigen 0.2 ng/mL (0.000-6.500)
== END | disposition home or self-care (01) ==
LOC: LABWHC1 12:18
PROVIDERS: ATTEND Radiology Radiation Oncology
DX: C61 Malignant neoplasm of prostate (principal); R53.82 Chronic fatigue, unspecified
CPT/HCPCS: 36415; 84153; 84403